=== PATIENT | male | born 1970 | race Caucasian/White ===

== ENCOUNTER 2021-03-07 05:35 | Day surgery (SDC) | payer OTHER ==
[~2021-03-07] VITALS: Ht 180.3 cm; Wt 121.8 kg
[~2021-03-07 05:35] MED LIST: DETROL1 MG PO; FLOMAX0.4 MG PO; HYDROCODON-ACE1 EA10 PO; IBUPROFEN600 MG PO; MAPAP325 MG PO; MELOXICAM15 MG PO; OMEPRAZOLE20 MG PO; ZYRTEC10 MG PO
[2021-03-07] MEDS ORDERED: FAMOTIDINE20 MG PO (05:47)
[2021-03-07] MEDS ORDERED: NAPROXEN375 MG PO (05:48)
--- NOTE | 2021-03-07 06:00 | NUR ---
PT ARRIVED FOR PLANNED PROCEEDURES. CHG WIPES GIVEN TO OFFICERS WHO WILL ASSIST PT WITH WIPE DOWN AND CHANGING. ANASTHESIA SUMMARY COMPLETED. IV STARTED PER PROTOCOL. THIS RN NOTES THAT LABS HAVE NOT BEEN COMPLETED. 10ML LAB DRAW WITH IV START, LABLED AND SENT TO LAB PRE PROTOCOL. IV FLUIDS STARTED (SEE MAR). COREY RT, CALLED TO COLLECT COVID SWAB. RAPHAEL, SCHOOL CLEANER, UPDATED REGARDING PT STATUS AND INCOMPLETE LABS. AWAITING RESULTS. PT RESTING IN BED, OFFICERS AT BEDSIDE. BED RAILS UP. CALL LIGHT WITHIN REACH.
--- NOTE | 2021-03-07 06:15 | NUR ---
[facility] CALLED BY MICKY PEÑA. DEBBIE WEEKS STATES THEY DID NOT TO BLOOD WORK PRIOR TO PTS ARRIVAL TODAY RELATED TO "NO ORDER IN HIS CHART." [facility] CALLED AND STATES THEY HAVE NO LABS PERFORMED FOR PT IN THE LAST 30 DAYS. OR TEAM UPDATED.
--- NOTE | 2021-03-07 06:31 | NUR ---
COVID SWAB SENT TO IN-HOUSE LAB
--- NOTE | 2021-03-07 07:15 | NUR ---
PT UPDATED BY MURALI LIM RN, AND THIS RN CONCERNING DELAY OF PLANNED PROCEEDURE RELATED TO NEEDED LABS. PT AND OFFICERS VERBALZE UNDERSTANDING. PT WATCHING TV. DENIES ADDITIONAL REQUESTS OR COMPLAINTS. CALL LIGHT WITHIN REACH. OFFICERS AT BEDSIDE.
--- NOTE | 2021-03-07 09:04 | NUR ---
03/07/21 0904 Laura Barron [phone]- PT ARRIVES TO PACU NONAROUSABLE TO NOXIOUS STIMULI WITH AN OPA IN PLACE. RESP EVEN AND UNLABORED. OXYGEN SAT HIGH 90'S TO 100% ON 8L VIA MASK.
--- NOTE | 2021-03-07 09:35 | NUR ---
THIS RN TO ROOM TO CHECK ON PT. PT RESTING IN BED, HEAD OF BED ELEVATED TO 45 DEGREES. PT WATCHING TV. PT REPORTS 2/10 PAIN IN UMBILICAL AREA, DENIES NEED FOR PAIN MEDICAITON AT THIS TIME. OFFICERS AT BEDSIDE. PT UPDATED ON PLAN OF CARE. PT DENIES ADDITIONAL REQUESTS OR COMPLAINTS. CALL LIGHT WITHIN REACH. BED RAILS UP.
--- NOTE | 2021-03-07 11:19 | NUR ---
LABS RECEIVED, OR TEAM UPDATED. PT AND OFFICERS UPDATED. HEPARIN GIVEN PER ORDER. PT VERBALIZES UNDERSTANDING OF PLAN OF CARE. NO ADDITIONAL REQUESTS OR COMPLAINTS. CALL LIGHT WITHIN REACH. BED RAILS UP.
[2021-03-07] MEDS ORDERED: IBUPROFEN600 MG PO (14:45)
[2021-03-07] MEDS ORDERED: HYDROCODON-ACE1 EA10 PO (14:45)
[2021-03-07] MEDS ORDERED: ACETAMINOPHEN500 MG PO (14:46)
--- NOTE | 2021-03-07 15:33 | NUR ---
PT RETURNED FROM PACU. REPORT RECEIVED FROM MICKY MADISON. PT RESTING IN BED. PT REPORTS NAUSEA HAS RESOLVED, NONE AT THIS TIME. PT REPORTS 1/10 PAIN THAT IS "REALLY DULL." PT DENIES NEED FOR PAIN MEDICATION AT THIS TIME. DRESSING TO MIDLINE LOWER ABDOMEN SHOWS PINPOINT AMOUNT OF RED SHADOWING. OTHERWISE C/D/I. PT AWAKE AND ORIENTED TO ALL. DISCHARGE CRITERIA REVIEWED WITH PT. NO ADDTION AL REQUESTS OR COMPLAINTS. CALL LIGHT WITHIN REACH. BED RAILS UP. OFFICERS AT BEDSIDE.
--- NOTE | 2021-03-07 16:50 | NUR ---
VITALS AND ASSESSMENT DUE. THIS RN TO ROOM. PT WATCHING TV. PT RPERTS 4/10 DULL PAINS IN ABDOMEN. SEE MAR FOR MEDICATION GIVEN. PT TOLERATING PO PUDDING AND FLUIDS. DRESSING SHOWS SCANT AMOUNT OF RED SHADDOWING AND IS OTHERWISE C/D/I. PT ORIENTED TO ALL. PT REPORTS HE IS READY TO VOID. PT SITS ON EDGE OF BED INDEPENDANTLY. PT ABLE TO STAND AND TAKE STEPS IN PLACE. PT UP TO RESTROOM WITH OFFICERS. VOIDS 400ML CLEAR YELLOW URINE. PT MEETS DISCHARGE CRITERIA AND REPORTS HE IS READY FOR DISCHARGE. DISCHARGE INSTRUCTIONS REVIEWED WITH PT. PT VERBALIZES UNDERSTANDING OF MEDICAITONS, FOLLOW UP, AND WHEN TO CALL THE DOCTOR. PT DRESSED WITH OFFICERS ASSISTANCE. PT TRANSFERS SELF TO WHEELCHAIR. NO ADDITIONAL REQUESTS OR CONCERNS.
--- NOTE | 2021-03-07 17:03 | NUR ---
REPORT CALLED TO MICKY HELLER AT [facility]. ARRON STATES HER QUESTIONS HAVE BEEN ANSWERED.
--- NOTE | 2021-03-08 09:44 | OR ---
[facility] [address] [place], [place] [address] Signed DATE OF OPERATION: 03/07/2021 SURGEON: Amy Valenzuela MD PREOPERATIVE DIAGNOSIS: Symptomatic incisional hernia, inferolateral area of umbilicus. POSTOPERATIVE DIAGNOSIS: Incarcerated omentum with an incisional hernia inferior to prior incisional hernia repair. PROCEDURES: 1. Repair of new incisional hernia inferior and right lateral of prior incisional hernia repair. 2. Partial omentectomy. ANESTHESIA: General endotracheal, Ricardo Janis, PROCUREMENT CLERK and local 0.25% Marcaine with epinephrine 20 mL. INDICATION: This 50-year-old white man is a prisoner at [facility] and underwent a midline laparotomy for colon resection in 2009 elsewhere. I saw him in 2018 for an incisional hernia in the region of the umbilicus and just cephalad to it. This was repaired with implantation of Prolene mesh in the properitoneal space. In recent times, the patient has had increasing pain at the umbilicus and a bulging area inferior to the umbilicus, inferior to the area of prior incisional hernia repair. Imaging studies have confirmed probable hernia in this area. He is admitted at this time to undergo repair. He understands the risks of bleeding, infection, recurrence, and other unforeseen complications and he wishes to proceed. FINDINGS: The fascia inferior to the current defect was boyd and sturdy. The repair cephalad to this area of herniation remained very well repaired as well. The fascial defect today was approximately 3 cm or less and had incarcerated omentum. A portion of omentum was excised. It was not infarcted. Repair consisted of implantation of Prolene mesh in the properitoneal space with vertical reapproximation of the fascial edges as well over the mesh. There were no complications. DESCRIPTION OF PROCEDURE: The patient was brought to the operating room, given a general endotracheal anesthetic. Electronically Signed By: AMY VALENZUELA MD 03/08/21 0944 PATIENT NAME: ALLY BUSTILLOS OPERATIVE REPORT DATE OF : 68 REPORT #: [id number] PHYSICIAN: AMY VALENZUELA MD PCP: ASHLEY LOVE REPORT IS CONFIDENTIAL AND NOT TO BE RELEASED WITHOUT AUTHORIZATION [facility] [address] [place], [place] [address] Signed Preoperative antibiotic Ancef was given and sequential compression device stockings used. The abdomen was prepared with a chlorhexidine solution and draped sterilely. He does have an obese abdominal wall. In the region of the umbilicus, palpation could not definitively identify the offending hernia, likely in relation to scar tissue from the past. An incision was made lateral to the umbilicus on the left side and the previous incision dissection carried through the subcutaneous tissue showing scar tissue dominantly. Using blunt electrocautery dissection, further dissection was undertaken. The midline fascia was identified inferiorly and superiorly. There was an edge of Prolene mesh from prior hernia repair, which was well cephalad to the current area of concern. The fascia of the abdomen was incised and properitoneal layer identified. Further dissection cephalad showed attenuation of the fascia and ultimately a fascial defect, which had protruding herniated incarcerated omentum within the hernia sac. This was to the right and inferior to the umbilicus itself. The area of Prolene mesh from prior repair was cephalad to this. This did not represent a recurrent incisional hernia, but rather an incisional hernia related to the primary problem of low midline incision. The hernia sac edges were defined more clearly using blunt and electrocautery dissection. The bulkiness of the herniated omentum was best managed with excision. Sequential application of hemostats was used to divide that portion of protruding omentum and the vascular pedicles were secured with 2-0 Vicryl ties. This allowed for dissection of the properitoneal space. Dissection was undertaken circumferentially for a few centimeters. There was no sign of remaining open hernia sac. A segment of 3 x 6-inch Prolene mesh was cut to an elliptical configuration, oriented transversely, and secured with interrupted 0 Prolene sutures with Prolene pledgets. The midline fascia was then approximated with interrupted 0 Prolene sutures with Prolene pledgets in a horizontal mattress configuration. 20 mL of 0.25% Marcaine with epinephrine was injected locally. Irrigation was undertaken. Saumya's layer was reapproximated with interrupted 2-0 Vicryl and skin closed with running subcuticular 3-0 Vicryl. Steri-Strips were applied as was an Acticoat dressing. The patient tolerated procedure well, was ultimately extubated and transferred to the recovery room in good condition having suffered no complication. Sponge, needle, and counts reported as correct x3. MD DENVER Granda/AUGUSTL /[id number] Electronically Signed By: AMY VALENZUELA MD 03/08/21 0944 PATIENT NAME: KAVITA BUSTILLOSNCER JAYCOB OPERATIVE REPORT DATE OF : 68 REPORT #: [id number] PHYSICIAN: AMY VALENZUELA MD PCP: ASHLEY LOVE REPORT IS CONFIDENTIAL AND NOT TO BE RELEASED WITHOUT AUTHORIZATION [address] [place] [address] Signed cc: ZANE Knowles Copies: JOSSELIN AC ~ Electronically Signed By: AMY VALENZUELA MD 03/08/21 0944 PATIENT NAME: ALLY BUSTILLOSN OPERATIVE REPORT DATE OF : 68 REPORT #: [id number] PHYSICIAN: AMY VALENZUELA MD PCP: ASHLEY LOVE REPORT IS CONFIDENTIAL AND NOT TO BE RELEASED WITHOUT AUTHORIZATION
--- NOTE | 2021-03-12 16:22 | PATH ---
[facility] [address] [place], [place] [address] Signed SPECIMEN(S): A PORTION OF OMENTUM SPECIMEN SOURCE: A. PORTION OF OMENTUM CLINICAL HISTORY: Recurrent incisional hernia FINAL PATHOLOGIC DIAGNOSIS: Portion of omentum, partial omentectomy: - Mature fibroadipose tissue with focal hemorrhage. - No evidence of malignancy. MICROSCOPIC EXAMINATION: Histologic sections of all submitted blocks are examined by light microscopy. These findings, together with the gross examination, support the pathologic diagnosis. GROSS DESCRIPTION: The specimen, labeled "SB," and designated on the requisition "portion of omentum, recurrent incisional hernia," is received in formalin and consists of an unoriented, yellow, lobulated, ragged 8.5 x 6.7 x 2.7 cm piece of fibrofatty tissue with a scant amount of attached wasserman-white, grossly unremarkable fibromembranous tissue. The specimen is cross-sectioned to reveal yellow, homogenous, and grossly unremarkable tissue. A discrete mass/lesion is not grossly identified. Water Resources Program Director sections are submitted in one cassette (A1). AI (under the direct supervision of a pathologist) The Gross Description was prepared using a voice recognition system. The report was reviewed for accuracy; however, sound-alike word errors, addition and/or deletions may occur. If there is any question about this report, please contact Client Services. PERFORMING LABORATORY: The technical component was performed by [facility], [address] [place] [id number] (Music Internship: Radha Mccormack MD; CLIA# [id number]). [facility] [place] [address] [address] (CLIA# [id number]). Diagnostician: Lisa Love MD PATIENT NAME: ALLY BUSTILLOS PATHOLOGY DATE OF : 68 REPORT #: [id number] PHYSICIAN: VIN BLUM PCP: ASHLEY LOVE REPORT IS CONFIDENTIAL AND NOT TO BE RELEASED WITHOUT AUTHORIZATION [address] [place], [place] [address] Signed Pathologist Electronically Signed 03/12/2021 Copies: ~ PATIENT NAME: ALLY BUSTILLOS PATHOLOGY DATE OF : 68 REPORT #: [id number] PHYSICIAN: VIN PATHOLOGY PCP: ASHLEY LOVE REPORT IS CONFIDENTIAL AND NOT TO BE RELEASED WITHOUT AUTHORIZATION
== END 2021-03-07 16:50 | disposition home or self-care (01) ==
LOC: DS 05:35
PROVIDERS: ATTEND Surgery
PROC: 0WUF0JZ Supplement Abdominal Wall with Synthetic Substitute, Open Approach (ICD-10-PCS; principal; 2021-03-07 06:45)
DX: K43.0 Incisional hernia with obstruction, without gangrene (principal); K21.00 Gastro-esophageal reflux disease with esophagitis, without bleeding; Z88.5 Allergy status to narcotic agent; Z90.49 Acquired absence of other specified parts of digestive tract; Z20.822 Contact with and (suspected) exposure to COVID-19
CPT/HCPCS: 00830; 80053; 85025; C1781; C9803; J0690; J1100; J1644; J1885; J2001; J2250; J2405; J2704; J3010; J7121; U0003